=== PATIENT | female | born 1980 | race Caucasian/White ===

== ENCOUNTER 2019-01-11 09:58 | Inpatient (IN) | payer OTHER ==
[~2019-01-11] VITALS: Ht 160 cm; Wt 52.2 kg
[2019-01-11 10:01] VITALS: BP 108/66
[2019-01-11 10:26] LABS: ABSOLUTE NEUTROPHILS 7.1 thou/uL (1.4-8.2); BASOPHILS 0.3 % (0.0-2.0); HEMATOCRIT 25.7 % (37.0-47.0); HEMOGLOBIN 8.7 gm/dL (12.0-15.0); LYMPHOCYTES 14.2 % (24.0-44.0); MCH 28.2 pg (26.0-34.0); MCHC 33.9 g/dL (28.0-37.0); MCV 83.3 fL (80.0-100.0); MONOCYTES 3.2 % (1.0-8.0); PLATELET COUNT 221 thou/uL (150-400); POLYS 80.3 % (36.0-66.0); RBC 3.08 mil/uL (4.20-5.00); RDW 14.1 % (10.5-14.5); WBC 8.9 thou/uL (4.0-11.0)
[2019-01-11 10:32] LABS: CALCIUM 8.4 mg/dL (8.5-10.1); CREATININE 0.6 mg/dL (0.6-1.0); POTASSIUM 3.7 mmol/L (3.5-5.1)
[2019-01-11 12:18] LABS: APTT 22.5 Seconds (24.5-32.8); PROTIME 10.4 Seconds (9.3-11.4)
[2019-01-11] MEDS ORDERED: TYLENOL325 MG PO (13:46)
[2019-01-11 15:24] VITALS: BP 115/57
[2019-01-11 15:37] VITALS: BP 115/74
[2019-01-11 16:00] VITALS: BP 115/57
--- NOTE | 2019-01-11 18:19 | NUR ---
PATIENT ARRIVED FROM ER FOR SYNCOPE AND VAGINAL BLEEDING. A/OX4, DENIES PAIN, VSS, STAND BY ASSIST TO COMMODE. ARRIVED UNITL OF BLOOD TRANSFUSING. ADMISSION ASSESMENT AND HISTORY COMPLETED. ORIENTED TO ROOM. FALL PRECAUTIONS IN PLACE. ABLE TO USE CALL LIGHT APPROPRIATELY. DR PENA NOTIFIED FOR CONSULT WITH TELEPHONE ORDERS GIVEN.
[2019-01-11 19:25] VITALS: BP 107/60
[2019-01-11 19:30] VITALS: BP 128/63
--- NOTE | 2019-01-11 19:59 | NUR ---
TALKED WITH NURSE, PT RECEIVED ORAL REPLACEMENT FOR ESTROGEN IV WHICH IS DOCUMENTED, THIS WAS OKAYED BY ER PHYSICIAN AND PHARMACIST. PASSED ON TO DAY SHIFT RN
[2019-01-12 04:13] VITALS: BP 110/60
[2019-01-12 05:19] LABS: HEMATOCRIT 25.2 % (37.0-47.0); HEMOGLOBIN 8.6 gm/dL (12.0-15.0); MCH 28.7 pg (26.0-34.0); MCHC 34.3 g/dL (28.0-37.0); MCV 83.7 fL (80.0-100.0); RBC 3.01 mil/uL (4.20-5.00); RDW 14.3 % (10.5-14.5); WBC 10.5 thou/uL (4.0-11.0)
--- NOTE | 2019-01-12 05:21 | NUR ---
Pt. rested quietly at intervals during the night when checked on during frequent rounds. Pt. with periods of light spotty bleeding. C/o a head- ache and was given po tylenol (see emar) with some relief noted. Up to the bedside comode with assistance of one. Bed alarm is on.
[2019-01-12 07:17] VITALS: BP 101/58
[2019-01-12 11:10] VITALS: BP 101/58
[2019-01-12 15:02] LABS: HEMATOCRIT 26.7 % (37.0-47.0); HEMOGLOBIN 9.1 gm/dL (12.0-15.0)
[2019-01-12 15:39] VITALS: BP 106/61
--- NOTE | 2019-01-12 17:08 | NUR ---
PT VITAL SIGNS STABLE THROUGHOUT SHIFT. PT'S BLEEDING APPEARED TO HAVE SLOWED OVER NIGHT, HOWEVER WHEN PT WAS UP AND AMBULATING, BLOOD FLOW INCREASED SUBSTANTIALLY AND PT PASSED SEVERAL LARGE CLOTS. PHYSICIAN NOTIFIED AND ORDERS IMPLEMENTED. PT RESTING, FAMILY AT [facility]. WILL CONTINUE TO MONITOR.
[2019-01-12 19:03] VITALS: BP 115/74
[2019-01-13 03:10] VITALS: BP 111/68
--- NOTE | 2019-01-13 04:25 | NUR ---
Pt. rested quietly at intervals during the night when checked on during frequent rounds. She offers no c/o pain. Pt. reports a moderate amount of vaginal bleeding during the shift.
[2019-01-13 05:16] LABS: HEMATOCRIT 25.9 % (37.0-47.0); HEMOGLOBIN 8.6 gm/dL (12.0-15.0); MCH 28.2 pg (26.0-34.0); MCHC 33.4 g/dL (28.0-37.0); MCV 84.2 fL (80.0-100.0); RBC 3.07 mil/uL (4.20-5.00); RDW 14.9 % (10.5-14.5); WBC 12.2 thou/uL (4.0-11.0)
[2019-01-13 07:30] VITALS: BP 115/71
[2019-01-13 10:26] VITALS: BP 101/58
--- NOTE | 2019-01-13 11:26 | NUR ---
ASSUMED CARE AT 0700, SHIFT ASSESSMENT DONE, VSS. DR REDDING WROTE DISCHRAGE ORDER THIS AM, PRESCRIPTION GIVEN. DISCHARGE PAPER WORKS GIVEN. PERIPHEARL IV WAS TAKEN OUT. DR PENA CAME UP AFTER THE PATIENT LEFT, INSTRUCTED THIS NURSE TO CALL THE PATIENT AND TELL HER TO TAKE IRON EVERY OTHER DAY. TRIED TO CALL PATIENT, UNABLE TO GET A HOLD OF THE PATIENT. WILL TRY TO CALL AGAIN. PATIENT ALSO INSTRUCTED TO TAKE PREMARIN 2.5 MG FOUR TIMES A DAY AND TO MAKE A FOLLOW UP APPOINTMENT WITH DR PENA IN A WEEK. WILL CONTINUE TO ASSESS AND ASSIST WITH ADLs NEEDED.
--- NOTE | 2019-01-13 13:14 | EKG ---
[place] [address] [facility] [employer] [address] ELECTROCARDIOGRAM REPORT Name: CORINNA GREEN Damion Room #: 449-I [facility].#: [id number] ������������������ Admission: 01/11/19 ������������������ Attend Phys: Grant Calderón MD Discharge: 01/13/19 ������������������ Date of : 82 Report #: [id number] ����������������������������������������������������������������� [id number] THIS REPORT FOR: //name// [facility] ED Test Date: 2019-01-11 Test Time: 11:27:18 Pat Name: CORINNA GREEN Department: Room: [facility] Gender: F Water [employer] Servicer: DERRICK : 1980 Requested By: Marty Naranjo Order Number: [id number] MD: Orlando Baltazar Measurements Intervals [place] Rate: 91 P: 69 CO: 132 QRS: 78 QRSD: 82 T: 32 QT: 387 QTc: 477 Interpretive Statements Sinus rhythm No significant abnormality No previous ECG available for comparison Electronically Signed On 01-13-2019 13:14:46 CDT by Orlando Baltazar [email or web address] ��������������������������������������������� <ELECTRONICALLY SIGNED> ���������������������������������������� By: Orlando Baltazar MD, [facility] ��������������������������������������������� 01/13/19 1314 1127 26 Orlando Baltazar MD, FACC /EPI
== END 2019-01-13 11:12 | disposition home or self-care (01) | DRG 760 ==
LOC: ER 09:58 → EROBS 13:17 → 4W 16:12
PROVIDERS: Emergency Medicine; Hospitalist; ADMIT Hospitalist
PROC: 30233N1 Transfusion of Nonautologous Red Blood Cells into Peripheral Vein, Percutaneous Approach (ICD-10-PCS; principal; 2019-01-11)
DX: N92.0 Excessive and frequent menstruation with regular cycle (principal); D62 Acute posthemorrhagic anemia; N93.8 Other specified abnormal uterine and vaginal bleeding; F32.9 Major depressive disorder, single episode, unspecified
CPT/HCPCS: 10045